=== PATIENT | female | born 1990 | race Asian ===

== ENCOUNTER 2020-07-17 14:19 | Emergency (ER) | payer OTHER ==
[~2020-07-17] VITALS: Ht 170.2 cm; Wt 75.3 kg
[2020-07-17 14:28] VITALS: TEMP 98
[2020-07-17] MEDS ORDERED: DIVALPROEX500 M1 PO (15:22)
[2020-07-17] MEDS ORDERED: TRAZ100T PO (15:24)
[2020-07-17] MEDS ORDERED: HALO5TAB10 PO (15:26)
[2020-07-17 17:00] VITALS: BP 121/70
== END 2020-07-17 17:00 | disposition home or self-care (01) ==
LOC: ED 14:19
DX: S43.492A Other sprain of left shoulder joint, initial encounter (principal); S43.491A Other sprain of right shoulder joint, initial encounter; S39.012A Strain of muscle, fascia and tendon of lower back, initial encounter; V53.5XXA Driver of pick-up truck or van injured in collision with car, pick-up truck or van in traffic accident, initial encounter; Y92.89 Other specified places as the place of occurrence of the external cause
CPT/HCPCS: 96372; 99283; J1885

== ENCOUNTER 2021-06-15 11:47 | Emergency (ER) | payer OTHER ==
[~2021-06-15] VITALS: Ht 170.2 cm; Wt 70.8 kg
[~2021-06-15 11:47] MED LIST: DIVALPROEX500 M1 PO; HALO5TAB10 PO; TRAZ100T PO
[2021-06-15 13:43] VITALS: BP 131/87; TEMP 98.6
== END 2021-06-15 13:44 | disposition home or self-care (01) ==
LOC: ED 11:47
DX: M54.5 Low back pain (principal)
CPT/HCPCS: 81000; 81025; 96372; 99283; J1885